=== PATIENT | female | born 1995 | race Two or more races ===

== ENCOUNTER 2018-07-06 18:21 | Emergency (ER) | payer OTHER ==
[~2018-07-06] VITALS: Ht 167.6 cm; Wt 83.5 kg
[~2018-07-06 18:21] MED LIST: ANAPROX275 MG PO; AZITHROMYCIN250 MG PO
== END 2018-07-06 19:22 ==
LOC: ER 18:21
DX: G44.209 Tension-type headache, unspecified, not intractable (principal)